=== PATIENT | male | born 1995 | race Two or more races ===

== ENCOUNTER 2019-01-26 18:44 | Emergency (ER) | payer OTHER ==
[~2019-01-26] VITALS: Ht 165.1 cm; Wt 98.0 kg
[2019-01-26 18:58] VITALS: BP 139/80
--- NOTE | 2019-01-26 19:19 | NUR ---
CALLED FOR RT
[2019-01-26] MEDS ORDERED: IPRATROPIUM NEB FS 0.5 MG/2.5 ML AMPUL.NEB NEB ONE (19:30)
[2019-01-26] MEDS ORDERED: predniSONE 20 MG TABLET PO ONE (19:30)
[2019-01-26] MEDS ORDERED: ALBUTEROL FS 2.5 MG/3 ML VIAL.NEB NEB ONE (19:30)
[2019-01-26] MEDS ORDERED: IPRATROPIUM NEB FS 0.5 MG/2.5 ML AMPUL.NEB ONE (19:33)
[2019-01-26] MEDS ORDERED: ALBUTEROL FS 2.5 MG/3 ML VIAL.NEB ONE (19:33)
[2019-01-26] MEDS ORDERED: predniSONE 20 MG TABLET ONE (19:57)
== END 2019-01-26 20:11 | disposition home or self-care (01) ==
LOC: ER 18:44
DX: J45.901 Unspecified asthma with (acute) exacerbation (principal)
CPT/HCPCS: 94640; 99283; J7512